=== PATIENT | female | born 1960 | race African-American/Black ===

== ENCOUNTER → 2019-08-12 | Outpatient (CLI) | payer BC ==
[~2019-08-12] MED LIST: APAP500 PO; BACTRIM DS TAB1 EACH PO; NAPROSYN500 MG; NOHOMEMEDICATIONS; NORCO 5-325 TA1 EACH PO; SUDAFED 12 HOU120 MG; ULTRAM 50MG TAB50 MG PO; ZANAFLEX4 MG PO
== END ==
LOC: RAD 15:43
DX: R05 Cough (principal); M41.84 Other forms of scoliosis, thoracic region